=== PATIENT | female | born 1995 | race Two or more races ===

== ENCOUNTER 2019-04-05 08:24 | Observation (INO) | payer BC, MEDICAID ==
[~2019-04-05] VITALS: Ht 162.6 cm; Wt 103.4 kg
[2019-04-05 09:11] LABS: APPEARANCE,URINE Cloudy (CLEAR); BILIRUBIN,URINE Negative (NEGATIVE); COLOR,URINE Yellow (YELLOW); GLUCOSE, URINE (UA) Negative (NEGATIVE); KETONES,URINE Negative (NEGATIVE); LEUKOCYTE ESTERASE ,URINE Large (NEGATIVE); NITRATE,URINE Negative (NEGATIVE); OCCULT BLOOD,URINE Negative (NEGATIVE); PH,URINE 7.5 (5.0-8.0); PROTEIN,URINE Negative (NEGATIVE); UROBILINOGEN,URINE 0.2 mg/dL (0.2-1.0)
[2019-04-05 09:30] LABS: BACTERIA,URINE Few /HPF (None Seen); RBC,URINE None Seen /HPF (0-1); SQUAMOUS EPITHELIAL CELL,UR 30-50 /HPF (0-2); WBC,URINE 26-50 /HPF (0-1)
[2019-04-05] MEDS ORDERED: LACTATED RINGERS 1000ML IV SCH (09:45)
[2019-04-05] MEDS ORDERED: CEFTRIAXONE SODIUM 1 GM IVP SCH (09:45)
[2019-04-05] MEDS ORDERED: LACTATED RINGERS 1000ML 1,000 ML IV SCH (10:15)
== END 2019-04-05 11:43 | disposition home or self-care (01) ==
LOC: LDH 08:24
PROVIDERS: ADMIT Obstetrics & Gynecology; ATTEND Obstetrics & Gynecology
DX: O26.893 Other specified pregnancy related conditions, third trimester (principal); R10.2 Pelvic and perineal pain; O99.89 Other specified diseases and conditions complicating pregnancy, childbirth and the puerperium; M54.5 Low back pain; Z3A.35 35 weeks gestation of pregnancy
CPT/HCPCS: 81001; 96374; G0378 ×3; J0696; J7120 ×2; 96360

== ENCOUNTER 2019-04-27 17:51 | Inpatient (IN) | payer BC, MEDICAID ==
[~2019-04-27] VITALS: Ht 162.6 cm; Wt 107.5 kg
[2019-04-27] MEDS ORDERED: OXYTOCIN-LR 20 UNITS/1000 ML 1,000 ML IV SCH ×2 (19:15→19:45)
[2019-04-27 19:29] LABS: APPEARANCE,URINE Clear (CLEAR); BILIRUBIN,URINE Negative (NEGATIVE); COLOR,URINE Yellow (YELLOW); GLUCOSE, URINE (UA) Negative (NEGATIVE); KETONES,URINE Negative (NEGATIVE); LEUKOCYTE ESTERASE ,URINE Trace (NEGATIVE); NITRATE,URINE Negative (NEGATIVE); OCCULT BLOOD,URINE Negative (NEGATIVE); PH,URINE 6.5 (5.0-8.0); PROTEIN,URINE Negative (NEGATIVE); UROBILINOGEN,URINE 0.2 mg/dL (0.2-1.0)
[2019-04-27 19:34] LABS: BACTERIA,URINE Rare /HPF (None Seen); RBC,URINE 0-1 /HPF (0-1); SQUAMOUS EPITHELIAL CELL,UR Rare /HPF (0-2); WBC,URINE 0-1 /HPF (0-1)
[2019-04-27 20:03] LABS: HEMATOCRIT 36.3 % (36-48); MEAN CORPUSCULAR HEMOGLOBIN 34.2 pg (27.0-33.0); MEAN CORPUSCULAR HGB CONC 34.7 g/dL (32.0-36.0); MEAN CORPUSCULAR VOLUME 98.7 fL (79-99); PLATELET COUNT (AUTO) 232 K/uL (130-400); RED BLOOD CELL COUNT(AUTO) 3.68 MIL/uL (4.00-5.50); RED CELL DISTRIBUTION WIDTH 13.2 % (11.0-15.5); WHITE BLOOD COUNT (AUTO) 10.3 K/uL (4.8-10.8)
[2019-04-27 22:23] VITALS: BP 110/66
[2019-04-28] MEDS: LACTATED RINGERS 1000ML 1,000 ML IV PRN ×2 (00:21→02:41)
[2019-04-28] MEDS ORDERED: MEPERIDINE-PF 50 MG/ML SYG ONE (07:29)
[2019-04-28] MEDS ORDERED: MEPERIDINE-PF 50 MG/ML SYG IVP SCH (07:30)
[2019-04-28] MEDS ORDERED: PROMETHAZINE HCL 25 MG/ML 1ML AMPULE IM SCH (07:30)
[2019-04-28] MEDS: FLU VACC QS2019-20 36MOS UP/PF 60 MCG/0.5 ML ML IM SCH (09:00)
[2019-04-28] MEDS ORDERED: LACTATED RINGERS 500 ML 500 ML IV PRN (10:00)
[2019-04-28] MEDS ORDERED: EPHEDRINE SULFATE 50 MG/ML AMPULE IVP PRN (10:00)
[2019-04-28] MEDS ORDERED: NALOXONE HCL 0.4 MG/1 ML ML IV PRN (10:00)
[2019-04-28] MEDS ORDERED: ROPIVACAINE 0.2% 100ML VIAL 100 ML EP SCH (10:00)
[2019-04-28] MEDS ORDERED: FENTANYL CITRATE PF 50 MCG/1 ML 2ML VIAL ONE (10:08)
[2019-04-28] MEDS ORDERED: LIDOCAINE HCL 1% 20 ML VIAL ONE (13:41)
[2019-04-28] MEDS ORDERED: OXYTOCIN-LR 20 UNITS/1000 ML 1,000 ML IV SCH (14:00)
[2019-04-28] MEDS ORDERED: DIPH,PERTUSS(ACELL),TET VAC/PF 0.5 ML VIAL IM PRN (14:00)
[2019-04-28] MEDS ORDERED: MEASLES/MUMPS/RUBELLA VACCINE, LIVE 0.5 ML/VIAL SQ PRN (14:00)
[2019-04-28] MEDS ORDERED: LANOLIN 30GM OINTMENT TP PRN (14:00)
[2019-04-28] MEDS ORDERED: ACETAMINOPHEN-CODEINE 300/30MG TAB PO PRN (14:00)
[2019-04-28] MEDS ORDERED: WITCH HAZEL 1 PAD TP PRN (14:00)
[2019-04-28] MEDS ORDERED: ACETAMINOPHEN 325 MG TAB PO PRN (14:00)
[2019-04-28] MEDS ORDERED: BENZOCAINE/LANOLIN/ALOE VERA 60 ML AEROSOL TP PRN (14:00)
[2019-04-28 15:38] VITALS: BP 109/70
[2019-04-28] MEDS ORDERED: FLU VACC QS2019-20 36MOS UP/PF 60 MCG/0.5 ML ML IM ONE (16:30)
[2019-04-28] MEDS ORDERED: PNV1TABL17 PO (16:39)
[2019-04-28] MEDS: IBUPROFEN 600 MG TABLET PO PRN (17:30)
[2019-04-28 19:15] VITALS: BP 112/61
[2019-04-28] MEDS: DOCUSATE SODIUM 100 MG CAP PO SCH (21:26)
[2019-04-29 00:32] VITALS: BP 101/65
[2019-04-29 03:20] VITALS: BP 95/63
[2019-04-29 05:34] LABS: HEMATOCRIT 35.7 % (36-48); MEAN CORPUSCULAR HEMOGLOBIN 33.4 pg (27.0-33.0); MEAN CORPUSCULAR HGB CONC 33.6 g/dL (32.0-36.0); MEAN CORPUSCULAR VOLUME 99.5 fL (79-99); NUCLEATED RED BLOOD CELLS 0.1 % (0.0-0.19); PLATELET COUNT (AUTO) 240 K/uL (130-400); RED BLOOD CELL COUNT(AUTO) 3.58 MIL/uL (4.00-5.50); RED CELL DISTRIBUTION WIDTH 13.3 % (11.0-15.5); WHITE BLOOD COUNT (AUTO) 11.7 K/uL (4.8-10.8)
[2019-04-29] MEDS: IBUPROFEN 600 MG TABLET PO PRN (06:41)
[2019-04-29 07:16] VITALS: BP 95/57
[2019-04-29 08:12] LABS: HEPATITIS Bs ANTIGEN SCREEN P Negative (Negative)
[2019-04-29] MEDS: DOCUSATE SODIUM 100 MG CAP PO SCH (09:40)
[2019-04-29] MEDS: FLU VACC QS2019-20 36MOS UP/PF 60 MCG/0.5 ML ML IM SCH (09:53)
[2019-04-29 11:47] VITALS: BP 117/60
--- NOTE | 2019-04-29 14:50 | NUR ---
PT LEFT UNIT VIA WHEELCHAIR WITH BABY IN ARMS. PERSONAL VEHICLE USED FOR TRANSPORTATION BABY SECURE IN CARSEAT.
== END 2019-04-29 14:40 | disposition home or self-care (01) | DRG 807 ==
LOC: LDH 17:51 → WSH 04-28 15:35
PROVIDERS: ADMIT Obstetrics & Gynecology; ATTEND Obstetrics & Gynecology
PROC: 10E0XZZ Delivery of Products of Conception, External Approach (ICD-10-PCS; principal; 2019-04-28)
PROC: 10907ZC Drainage of Amniotic Fluid, Therapeutic from Products of Conception, Via Natural or Artificial Opening (ICD-10-PCS; 2019-04-28)
PROC: 00HU33Z Insertion of Infusion Device into Spinal Canal, Percutaneous Approach (ICD-10-PCS; 2019-04-28)
PROC: 3E0R3BZ Introduction of Anesthetic Agent into Spinal Canal, Percutaneous Approach (ICD-10-PCS; 2019-04-28)
PROC: 0W8NXZZ Division of Female Perineum, External Approach (ICD-10-PCS; 2019-04-28)
PROC: 3E02340 Introduction of Influenza Vaccine into Muscle, Percutaneous Approach (ICD-10-PCS; 2019-04-29)
PROC: 3E0234Z Introduction of Serum, Toxoid and Vaccine into Muscle, Percutaneous Approach (ICD-10-PCS; 2019-04-29)
DX: O77.0 Labor and delivery complicated by meconium in amniotic fluid (principal); Z37.0 Single live birth; Z3A.38 38 weeks gestation of pregnancy; Z23 Encounter for immunization
CPT/HCPCS: 36415; 81001; 85027; 86592; 86850; 86900; 86901; 87340; 90707; 90715; A4314; G0378; J2175; J2590; J2795; J3010; J7120; Q2035